=== PATIENT | female | born 1985 | race Caucasian/White ===

== ENCOUNTER 2023-12-07 07:14 | Emergency (ER) | payer BC, SELFPAY ==
[2023-12-07 07:37] VITALS: BP 129/81
[2023-12-07] MEDS: MOTRIN 600 MG PO (10:25)
[2023-12-07 10:47] VITALS: BP 121/83
--- NOTE | 2023-12-07 13:31 | ED.GENMED ---
History of Present Illness
General
Chief Complaint: Musculo-Skeletal Complaint
Source: patient
Exam Limitations: none
Time Seen by Provider: 12/07/23 08:53
Nursing documentation reviewed up to this point in time: agreed with
History of Present Illness
History of Present Illness:
38 y/o F with no sig pmh
has been training for a half marathon
2 weeks ago felt heel pain while she was training and ever since she has had pain with walking
now the past few days she had swelling aorund her heel and base of her ankle
she is still able to walk
no fever, chills, redness, wounds, calf pain, numbness
she has only trie dmotrin here and there
Past History
Past History
ED Past Medical History: Other (Seasonal allergies, ear infections)
ED Past Surgical History: Other (Bilateral myringotomy tubes, turbinectomy)
Social History
Tobacco: Former smoker
Alcohol: Occasional
Drug: None
Personal:
Living: with family
Employment: Employed
Review of Systems
Review of Systems
Allergies reviewed?: Yes
All Other Systems: Not applicable
Phy Exam
Physical Exam
Physical Exam:
GENERAL: Alert , in no apparent distress, comfortable at rest
HEAD: NCAT
CV: 2+ DP PULSES B/L
NEUROLOGICAL: Alert and oriented, no focal neuro deficits, , 5/5 strength, sensation intact, ambulation slight limp right leg
SKIN: Warm and dry,
MUSCULOSKELETAL: mild STS right ankle with tenderness to malleolus medially; pain with inversion and eversion;
no tenderness at the base of the 5th metatarsal, no other foot tenderness
no knee/prox tib/fib tenderness, full painless ROM;
PSYCH: Normal and appropriate interaction.
Course
Orders/Labs/Results
Orders:
Orders
12/07/23 07:46
CR Foot - Left Min 3 Views Urgent
Comment:
Reason For Exam: pain
Heel, Left 2 View [CR Heel/os Calcis - Left 2 Vw*] Urgent
Comment:
Reason For Exam: pain
12/07/23 09:52
boot [Ortho Boot Left- Treatment] ONCE
Short or tall?: Short
Ibuprofen [Motrin] 600 mg PO NOW STA
Vital Signs
Initial and Last Documented VS:
Initial Vital Signs
Temp Pulse Resp BP Pulse Ox
98.0 F 66 20 129/81 100
12/07/23 07:37 12/07/23 07:37 12/07/23 07:37 12/07/23 07:37 12/07/23 07:37
Last Documented Vital Signs
Temp Pulse Resp BP Pulse Ox
98.0 F 68 20 121/83 100
12/07/23 07:37 12/07/23 10:47 12/07/23 07:37 12/07/23 10:47 12/07/23 10:47
MDM/Problems Addressed
Differential Diagnosis Includes:
stress fx, plantar fasciitis, tendinitis
MDM/Problems Addressed:
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
runner
2 weeks heel pain
now with some swelling
no redneess
no wounds
painful weight bearing oliverio int he morning
soft calf, notnender
normal pulse
no signs of infection but some STS heel an dlaterally
xray indep reviewed, no spurs, no bony abnormalities
suspect plantar fasciitis vs. tenidintis vs. stress fracture
will try a short ankle boot an dheel lift
plantar splint at night
podiatry
rest.
*Critical Care Note
Total Time (30-74mins, 75-104mins- exclusive of procedures): Not Applicable
ED Attending Note
-
Portions of this chart may have been created with voice recognition software.� Occasional wrong word or��sound alike� substitutions may have occurred due to the inherent limitations of voice recognition software.
Discharge Plan
Departure
Patient Disposition: Home (Routine Discharge)
Date of Disposition: 12/07/23
Time of Disposition: 09:59
Patient with high blood pressure during this ER visit?: No
Condition: Fair
Covid-19: Not Applicable
Discharge Problem:
Plantar fasciitis of left foot, Heel pain
Instructions: Plantar fasciitis, Plantar Fasciitis Exercises
Prescriptions:
New
meloxicam 15 mg tablet
15 mg PO DAILY Qty: 10 0RF
No Action
loratadine 10 MG tablet
10 mg PO DAILY
acetaminophen [Tylenol Extra Strength] 500 MG tablet
1,000 mg PO Q6HPRN PRN (Reason: pain)
triamcinolone acetonide [Nasacort] 10.8 ML aerosol,spray
1 spray inhalation PRN PRN (Reason: allergies)
Referrals:
Abel Lopez DPM [Active] - Follow up in 5-7 days (FOOT/ANKLE)
Makeda Berger MD [Family Provider] -
Activity Restrictions/Additional Instructions:
YOUR XRAYS SHOW NO SIGNS OF INJURY
THIS COULD BE POSSIBLY A STRESS FRACTURE, WHICH WOULD NEED OTHER TESTING
IT ALSO SEEMS THAT YOU HAVE SOME PLANTAR FASCIITIS
TRY WEARING THE SPLINT AT NIGHT
MELOXICAM ONCE A DAY WITH FOOD FOR 5-7 DAYS FOR INFLAMMATINO
ICE OFF AND ON
WEAR THE BOOT TO HELP YOU WALK
RETURN FOR:
SEVERE PAIN, REDNESS, SEVERE SWELLING, CALF SWELLING OR ANY CONCERNS
OTHERWISE PLEASE SEE ORTHOPEDICS.
Interventions
Interventions:
*Risk Screen - Suicide Last Done: 12/07/23 09:48
*General Assessment Last Done: 12/07/23 09:48
*Neglect/Abuse Screening Last Done: 12/07/23 09:48
ED- Fall Risk Assessment Last Done: 12/07/23 10:48
*ED COVID-19 Vaccine History Last Done: 12/07/23 09:48
*Nursing Disposition Last Done: 12/07/23 10:51
ED-Musculoskeletal Assessment Last Done: 12/07/23 10:48
Discharge Date and Time
Discharge Date/Time: 12/07/23 10:45
Print Language: CHINESE
== END 2023-12-07 10:45 | disposition home or self-care (01) ==
LOC: EMR 07:14
PROVIDERS: EMERGENCY PHYSICIAN Student in an Organized Health Care Education/Training Program; FAMILY PHYSICIAN Internal Medicine
DX: M72.2 Plantar fascial fibromatosis (principal); M79.672 Pain in left foot; Z87.891 Personal history of nicotine dependence; Z88.1 Allergy status to other antibiotic agents; Z91.048 Other nonmedicinal substance allergy status
CPT/HCPCS: 99283; 29515; 73630; 73650

== ENCOUNTER → 2024-08-23 09:26 | Outpatient (REF) | payer BC, SELFPAY | LOC: HWWDC 09:26 | PROVIDERS: ATTENDING PHYSICIAN Internal Medicine | DX: Z12.31 Encounter for screening mammogram for malignant neoplasm of breast (principal) | CPT/HCPCS: 77063; 77067 ==